=== PATIENT | female | born 1980 | race Two or more races ===

== ENCOUNTER 2020-03-03 21:30 | Emergency (ER) | payer MEDICAID ==
[~2020-03-03] VITALS: Ht 167.6 cm; Wt 90.7 kg
[~2020-03-03 21:30] MED LIST: ENAL2.5T11 PO; MET50T PO; WARF5TAB PO
[2020-03-03 22:15] VITALS: BP 128/75
== END 2020-03-03 22:15 | disposition home or self-care (01) ==
LOC: ER 21:31
DX: R23.8 Other skin changes (principal); L29.9 Pruritus, unspecified; I10 Essential (primary) hypertension; F41.9 Anxiety disorder, unspecified; Z86.718 Personal history of other venous thrombosis and embolism; Z79.899 Other long term (current) drug therapy